=== PATIENT | female | born 1945 | race American Indian/Alaskan Native ===

== ENCOUNTER 2017-12-19 17:00 | Emergency (ER) | payer MEDICARE, MEDICAID ==
--- NOTE | 2017-12-19 17:36 | EDM.PDOC ---
ED HPI GENERAL MEDICAL PROBLEM - General Chief Complaint: Upper Extremity Injury/Pain Stated Complaint: FELL AT [facility] Time Seen by Provider: 12/19/17 17:15 Source of Information: Reports: Patient, Family History Limitations: Reports: No Limitations - History of Present Illness INITIAL COMMENTS - FREE TEXT/NARRATIVE: Fern presents after fall on ice at [facility]. She denies LOC. She complains of pain to right wrist, right forehead and right knee. Small laceration to right forehead, deformity noted to right wrist. Onset: Today, Sudden Right Arm Pain Score (Numeric/FACES): 10 - Related Data Allergies Allergy/AdvReac Type Severity Reaction Status Date / Time codeine Allergy Abdominal Verified 06/28/14 20:44 Pain Home Meds: Home Meds Aspirin [Ecotrin] 81 mg PO DAILY 06/28/14 [History] Clindamycin HCl [Cleocin] 150 mg PO TID 06/28/14 [History] FLUoxetine HCl [Fluoxetine HCl] 20 mg PO DAILY 06/28/14 [History] Hydrocodone/Acetaminophen [Hydrocodone-Acetaminophen 5-325] 1 - 2 tab PO Q6H PRN 06/28/14 [History] Lisinopril [Lisinopril] 40 mg PO DAILY 06/28/14 [History] Meloxicam [Meloxicam] 15 mg PO DAILY 06/28/14 [History] Ranitidine [Zantac] 150 mg PO DAILY 06/28/14 [History] amLODIPine Besylate [Amlodipine Besylate] 5 mg PO DAILY 06/28/14 [History] glipiZIDE [Glipizide] 5 mg PO DAILY 06/28/14 [History] metFORMIN [Glucophage] 1,000 mg PO BID 06/28/14 [History] Past Medical History HEENT History: Reports: Glaucoma Cardiovascular History: Reports: Hypertension Endocrine/Metabolic History: Reports: Diabetes, Type II - Infectious Disease History Infectious Disease History: Reports: Chicken Pox, Measles, Mumps - Past Surgical History Musculoskeletal Surgical History: Reports: Arthroscopic Knee, Other (See Below) Other Musculoskeletal Surgeries/Procedures:: pins in ankle and plate in wrist Social & Family History - Tobacco Use Smoking Status *Q: Never Smoker - Caffeine Use Caffeine Use: Reports: Coffee, Soda - Alcohol Use Days Per Week of Alcohol Use: 0 - Recreational Drug Use Recreational Drug Use: No Review of Systems - Review of Systems Review Of Systems: See Below Constitutional: Reports: No Symptoms Eyes: Denies: Blurred Vision, Photophobia, Vision Change Ears: Reports: No Symptoms Nose: Denies: Epistaxis, Pain Mouth/Throat: Reports: Other (No teeth, patient uses upper and lower dentures. ) . Denies: Bleeding, Lip Swelling, Pain Respiratory: Denies: Shortness of Breath, Wheezing, Cough, Sputum Cardiovascular: Denies: Chest Pain, Edema, Lightheadedness, Palpitations GI/Abdominal: Reports: No Symptoms Genitourinary: Reports: No Symptoms Musculoskeletal: Reports: Arm Pain, Other (Knee pain. Splint applied per EMS to RUE) Skin: Reports: Other (Laceration to right eyebrow) Neurological: Denies: Confusion, Dizziness, Headache, Numbness, Tingling, Weakness Psychiatric: Reports: No Symptoms ED EXAM, GENERAL - Physical Exam Exam: See Below Free Text/Narrative:: Fern is an alert and oriented 72 year old female who slipped and fell on the ice at [facility] prior to arrival. She presents with EMS in RUE splint, NSL to Left arm and dressing to right eyebrow. Pain and deformity to right wrist/forearm, small laceration to right eyebrow, pain to right knee. No LOC. Exam Limited By: No Limitations General Appearance: Alert, WD/WN, Moderate Distress Eye Exam: Bilateral Eye: EOMI, Normal Inspection, PERRL Ears: Normal External Exam, Normal Canal, Hearing Grossly Normal, Normal TMs Ear Exam: Bilateral Ear: Auricle Normal, Canal Normal, TM normal Nose: Normal Inspection, Normal Mucosa, No Blood Throat/Mouth: Normal Inspection, Normal Lips, Normal Gums, Normal Voice, No Airway Compromise, Other (Patient wears upper and lower dentures. ) Head: Atraumatic, Normocephalic Neck: Normal Inspection, Supple, Non-Tender, Full Range of Motion. No: Lymphadenopathy (R), Lymphadenopathy (L) Respiratory/Chest: No Respiratory Distress, Lungs Clear, Normal Breath Sounds, No Accessory Muscle Use, Chest Non-Tender Cardiovascular: Normal Peripheral Pulses, Regular Rate, Rhythm, No Edema, No Murmur, No Rub Peripheral Pulses: 2+: Brachial (L), Brachial (R), Dorsalis Pedis (L), Dorsalis Pedis (R) GI/Abdominal: Normal Bowel Sounds, Soft, Non-Tender, No Organomegaly, No Distention, No Mass Back Exam: Normal Inspection, Full Range of Motion. No: CVA Tenderness (R), CVA Tenderness (L) Extremities: No Pedal Edema, Normal Capillary Refill, Other (Deformity to right wrist/forearm, radial pulses present bilateral) Neurological: Alert, Oriented, CN II-XII Intact, Normal Cognition, No Motor/ Sensory Deficits Psychiatric: Normal Affect, Normal Mood Skin Exam: Warm, Dry, Normal Color, No Rash, Other (Small 0.5 laceration to right eyebrow. ) Lymphatic: No Adenopathy ED TRAUMA EXTREMITY PROCEDURES - Laceration/Wound Repair Right Face Lac/Wound Length In cm: 1 Appearance: Subcutaneous Anesthetic Type: Local Local Anesthesia - Lidocaine (Xylocaine): 1% Plain Local Anesthetic Volume: 2cc Skin Prep: Chlorhexidine (Hibiciens), Saline Exploration/Debridement/Repair: Wound Explored Closed With: Sutures Suture Size: 4-0 # of Sutures: 3 Suture Type: Nylon Sterile Dressing Applied: Nurse Tetanus Status Addressed: Yes Complications: No Progress/Comments: Patient tolerated well. - Splinting Right Upper Extremity Pre-Procedure NV Status: Normal Post-Procedure NV Status: Normal Splint Material: Fiberglass, Sling, Other (sugar tong ) Splint Design: Sugar Tong Applied & Form Fitted By: Provider Provider Post-Splint Application NV Check: NV Status Normal, Good Position Complications: No Progress/Comments: Patient tolerated well. Course - Vital Signs Last Recorded V/S: Last Vital Signs Temp 35.8 C 12/19/17 17:12 Pulse 69 12/19/17 20:07 Resp 16 12/19/17 20:07 BP 121/54 L 12/19/17 20:07 Pulse Ox 97 12/19/17 20:07 - Orders/Labs/Meds Orders: Active Orders 24 hr Category Date Time Status Forearm 2V Rt [CR] Stat Exams 12/19/17 17:32 Taken Knee 3V Rt [CR] Stat Exams 12/19/17 17:32 Taken Wrist 2V Rt [CR] Stat Exams 12/19/17 17:32 Taken Wrist Comp Min 3V Rt [CR] Stat Exams 12/19/17 17:53 Taken Meds: Medications Discontinued Medications Generic Name Dose Route Start Last Admin Trade Name Freq PRN Reason Stop Dose Admin Hydrocodone Bitart/Acetaminophen 1 tab 12/19/17 21:11 12/19/17 21:16 Bracey 325-10 Mg PO 12/19/17 21:12 1 tab ONETIME ONE Administration Bacitracin 1 dose 12/19/17 17:44 12/19/17 18:24 Bacitracin Oint 1 Gm TOP 12/19/17 17:45 1 dose ONETIME ONE Administration Fentanyl 50 mcg 12/19/17 18:13 12/19/17 18:21 Sublimaze IVPUSH 12/19/17 18:14 50 mcg ONETIME ONE Administration Fentanyl 50 mcg 12/19/17 19:50 12/19/17 20:05 Sublimaze IVPUSH 12/19/17 19:51 50 mcg ONETIME ONE Administration Lidocaine HCl 5 ml 12/19/17 17:44 12/19/17 18:25 Xylocaine-Mpf 1% INJECT 12/19/17 17:45 5 ml ONETIME ONE Administration - Re-Assessments/Exams Free Text/Narrative Re-Assessment/Exam: 12/19/17 18:[address] [facility] notified of patient status, images pushed, will wait for call back. 12/19/17 19:[address] [facility], will see if Bernarda Christian can view images and provide direction. Pending telephone call back. 12/19/17 20:15 Cheryle GIANG returned telephone call, we will obtain a repeat lateral view and place a sugar tongue splint. 12/19/17 21:12 Cheryle GIANG returned call, Patient will be placed in sugar tong splint, sling and follow up with Cheryle in [place] Next Friday. Patient provided hydrocodone in ER for pain. She can take her hydrocodone as directed. She was advised to not take more then directed. Departure - Departure Time of Disposition: 21:14 Disposition: Home, Self-Care 01 Condition: Good Clinical Impression: Distal radius fracture, right, Right distal ulnar fracture, Laceration of eyebrow, right - Discharge Information Instructions: Cast or Splint Care, Adult, [id number], Wrist Fracture Treated With Immobilization, [id number], Facial Laceration, [id number] Referrals: PCP,None [Primary Care Provider] - Forms: ED Department Discharge Additional Instructions: You have been evaluated and treated in the emergency room after your fall on the ice today. You had a laceration repair to your right eyebrow with 3 sutures. You can present to your primary care provider in 7 days to have them removed in [place]. Use ice to your eyebrow to help with swelling. You have a splint to your right arm for a distal radius and ulnar fracture. Keep the splint on, dry and in place. Use the sling at all times when up. Use ice to the wrist for pain. Elevate your wrist above your heart to help with pain. You can take ibuprofen for pain. Take your hydrocodone as directed for pain. Keep yourself hydrated. You will need to call and make an appointment to see Dr. Cheryle Christian at to make an appointment On FridayDecember 23. Cheryle has reviewed all of your x-rays and will be expecting you. Return for worsening, issues or concerns. - My Orders Last 24 Hours: My Active Orders 12/19/17 17:32 Forearm 2V Rt [CR] Stat Knee 3V Rt [CR] Stat Wrist 2V Rt [CR] Stat 12/19/17 17:53 Wrist Comp Min 3V Rt [CR] Stat - Assessment/Plan Last 24 Hours: My Active Orders 12/19/17 17:32 Forearm 2V Rt [CR] Stat Knee 3V Rt [CR] Stat Wrist 2V Rt [CR] Stat 12/19/17 17:53 Wrist Comp Min 3V Rt [CR] Stat Assessment:: Laceration right eyebrow 1cm in length with repair, 3 sutures. Distal radius/ulnar fracture Sugar tong splint Sling Plan: Patient evaluated and treated in the emergency room after fall on the ice today without LOC. Laceration repair to right eyebrow with 3 sutures. She can present to your primary care provider in 7 days to have them removed in [place]. Use ice to eyebrow to help with swelling. Splint to right arm for a distal radius and ulnar fracture. Keep the splint on, dry and in place. Use the sling at all times when up. Use ice to the wrist for pain. Elevate wrist above heart to help with pain. Take ibuprofen for pain. She can take her hydrocodone as directed for pain. Keep herself hydrated. She will need to call and make an appointment to see Dr. Cheryle Christian at [phone] to make an appointment On FridayDecember 23. Cheryle has reviewed all of her x-rays and will be expecting her. Return for worsening, issues or concerns.
[2017-12-19] MEDS ORDERED: Bacitracin Oint 1 GM U/D Packet TOP ONE (17:44)
[2017-12-19] MEDS ORDERED: fentaNYL 100 MCG/2 ML SDV IVPUSH ONE ×2 (18:13→19:50)
[2017-12-19] MEDS ORDERED: Acetaminophen/HYDROcodone 325-10 MG Tab PO ONE (21:11)
--- NOTE | 2017-12-22 09:04 | CR ---
Forearm 2V Rt INDICATION: Fall on ice, deformity right wrist/forearm/knee COMPARISON: 12/19/2017 views of the wrist FINDINGS: 2 views. Fractures of the distal radius and ulna again seen unchanged. Presumed healing fracture distal ulnar shaft. This is also unchanged. No new fractures seen.
--- NOTE | 2017-12-22 09:11 | CR ---
Wrist 2V Rt INDICATION: Fall on ice pain to right wrist/forearm COMPARISON: None FINDINGS: 2 views. There is a comminuted metaphyseal fracture of the distal radius with slight imp action of fracture fragments. No significant angulation. Ulnar styloid fracture. Presumed healing fr acture distal ulnar shaft. Bones are osteopenic.
--- NOTE | 2017-12-22 09:18 | CR ---
Wrist Comp Min 3V Rt INDICATION: Need repeat lateral view COMPARISON: Same day FINDINGS: 4 views views. Comminuted slightly impacted fracture distal radial metaphysis. No defini te intra-articular extension. Ulnar styloid fracture. No abnormal angulation presumed healing fractu re distal ulnar shaft.
--- NOTE | 2017-12-22 09:20 | CR ---
Knee 3V Rt INDICATION: Fall on ice, pain to right knee COMPARISON: None FINDINGS: 3 views. Total knee arthroplasty. No evidence of loosening. Components in good position . Bones are osteopenic. No definite fracture seen.
== END 2017-12-19 21:55 | disposition home or self-care (01) ==
LOC: JP.ED 17:00
DX: S52.501A Unspecified fracture of the lower end of right radius, initial encounter for closed fracture (principal); S52.601A Unspecified fracture of lower end of right ulna, initial encounter for closed fracture; S01.111A Laceration without foreign body of right eyelid and periocular area, initial encounter; I10 Essential (primary) hypertension; E11.9 Type 2 diabetes mellitus without complications; Z88.5 Allergy status to narcotic agent; Z79.82 Long term (current) use of aspirin; Z79.899 Other long term (current) drug therapy; W00.9XXA Unspecified fall due to ice and snow, initial encounter
CPT/HCPCS: 12011; 29125; 73090; 73100; 73110; 73562; 96374; 96376; 99284; A9270; J3010